=== PATIENT | female | born 1980 | race Asian ===

== ENCOUNTER 2023-01-03 02:55 | Emergency (ER) | payer BC ==
[~2023-01-03] VITALS: Ht 160 cm; Wt 46.7 kg
--- NOTE | 2023-01-03 03:24 | NUR ---
DR. OLVERA AT BEDSIDE
--- NOTE | 2023-01-03 03:27 | NUR ---
URINE SPECIMEN SENT TO LAB
[2023-01-03] MEDS ORDERED: IV NS 0.9% 500 ML BAG IV ONE (03:30)
[2023-01-03] MEDS ORDERED: KETOROLAC TROMETHAMINE INJ 30 MG/ML VIAL IV ONE (03:30)
--- NOTE | 2023-01-03 03:38 | NUR ---
20G IV STARTED ON L AC. BLOOD COLLECTED SENT TO LAB
[2023-01-03] MEDS ORDERED: KETOROLAC TROMETHAMINE 15 MG/ML VIAL ONE (03:40)
--- NOTE | 2023-01-03 03:43 | NUR ---
US TECH AT BED SIDE
[2023-01-03 03:44] LABS: BILIRUBIN,URINE NEGATIVE (NEGATIVE); COLOR,URINE YELLOW (YELLOW); LEUKOCYTE ESTERASE ,URINE NEGATIVE (NEGATIVE); NITRITE, URINE NEGATIVE (NEGATIVE); PROTEIN,URINE 2+ mg/dl (NEGATIVE); UGLUCOSE NEGATIVE (NEGATIVE); UROBILINOGEN,URINE 0.2 EU/dL (0.2)
[2023-01-03 03:46] LABS: BACTERIA,URINE Rare /HPF (None Seen); RBC,URINE 0-2 /HPF (0-2); SQUAMOUS EPITHELIAL CELL,UR Few /HPF (None Seen); WBC,URINE 0-2 /HPF (0-3)
[2023-01-03 04:08] LABS: BASOPHILS % (AUTO) 0.5 % (0.0-2.0); EOSINOPHILS % (AUTO) 1.8 % (0.0-6.0); HEMATOCRIT 33 % (33-45); LYMPHOCYTES # (AUTO) 1.9 K/uL (0.8-4.8); LYMPHOCYTES % (AUTO) 26.1 % (20.0-44.0); MEAN CORPUSCULAR HGB CONC 34 g/dl (31.0-36.0); MEAN CORPUSCULAR VOLUME 95 fL (82-100); MONOCYTES # (AUTO) 0.3 K/uL (0.1-1.30); MONOCYTES % (AUTO) 4.6 % (2.0-12.0); PLATELET COUNT (AUTO) 188 K/uL (150-450); RED BLOOD CELL COUNT(AUTO) 3.44 MIL/uL (4.0-5.2); WHITE BLOOD COUNT (AUTO) 7.5 K/uL (4.3-11.0)
--- NOTE | 2023-01-03 04:11 | NUR ---
BROUGHT TO CT DEPT
[2023-01-03 04:34] LABS: ALBUMIN 3.8 g/dL (3.4-5.0); BILIRUBIN,TOTAL 0.3 mg/dL (0.2-1.0); CALCIUM, SERUM 8.9 mg/dL (8.5-10.1); CREATININE 0.7 mg/dL (0.6-1.3); POTASSIUM 3.5 mmol/L (3.5-5.1); TOTAL PROTEIN, SERUM 7.1 g/dL (6.4-8.2)
[2023-01-03 05:10] VITALS: BP 103/66
--- NOTE | 2023-01-03 05:10 | NUR ---
Patient discharged to home in stable condition. Written and verbal after care instructions given. Patient verbalizes understanding of instruction.IV removed. Catheter intact and site benign. Pressure and 4x4 applied to site. No bleeding noted.
== END 2023-01-03 05:14 | disposition home or self-care (01) ==
LOC: ER 03:02
DX: N83.202 Unspecified ovarian cyst, left side (principal); N28.1 Cyst of kidney, acquired
CPT/HCPCS: 99285; 74176; 96374; 76856; 96361; 85025; 80048; 83690; 80076; 84703; 81001; 36415; 85730; J7030; J1885